=== PATIENT | female | born 1935 | race Two or more races ===

== ENCOUNTER 2017-08-08 20:05 | Inpatient (IN) | payer MEDICARE, BC ==
[~2017-08-08] VITALS: Ht 157.5 cm; Wt 66.2 kg
--- NOTE | 2017-08-08 20:05 | NUR ---
PT TO ER BB FROM HOME. PER EMS PT COMPLAINING OF PALPITATIONS INTERMITTENTLY WINCE 1500. UPON EMS ARRIVAL PT IN SVT. PT CONVERTED CUTTING TOOL SHARPENER WITH ADENOSINE 6MG IV. PT NOW IN NSR. PT DENIES ANY CHEST PAIN. PT CHANGED INTO GOWN AND CONNECTED TO MONITOR. NO DISTRESS NOTED. PT VITAL SIGNS WITHIN NORMAL LIMITS. DR MCHUGH AT BEDSIDE FOR EXAM. WILL CONT TO MONITOR PT.
[2017-08-08] MEDS ORDERED: ATOR40TA PO (20:42)
[2017-08-08] MEDS ORDERED: METO25TA6 PO (20:42)
[2017-08-08] MEDS ORDERED: PARO10TA3 PO (20:42)
[2017-08-08] MEDS ORDERED: TELM80TA2 PO (20:43)
[2017-08-08] MEDS ORDERED: TRIA1TAB3 PO (20:43)
[2017-08-08] MEDS ORDERED: PARO20TA6 PO (20:43)
[2017-08-08 21:00] LABS: BASOPHILS # (AUTO) 0.1 /CMM (0.0-0.2); BASOPHILS % (AUTO) 0.7 % (0.0-2.0); EOSINOPHILS % (AUTO) 0.5 % (0.0-6.0); HEMATOCRIT 36 % (33-45); HEMOGLOBIN 12.1 g/dL (11.5-14.8); LYMPHOCYTES # (AUTO) 1.9 /CMM (0.8-4.8); MEAN CORPUSCULAR HEMOGLOBIN 31 PG (26.0-33.0); MEAN CORPUSCULAR HGB CONC 34 g/dl (31.0-36.0); MEAN CORPUSCULAR VOLUME 91 fL (82-100); MONOCYTES # (AUTO) 0.6 /CMM (0.1-1.30); MONOCYTES % (AUTO) 5.9 % (2.0-12.0); NEUTROPHILS # (AUTO) 6.9 /CMM (1.8-8.9); NEUTROPHILS % (AUTO) 72.9 % (43.0-81.0); PLATELET COUNT (AUTO) 195 /CMM (150-450); RDW COEFFICIENT OF VARIATION 12.6 (11.5-15.0); WHITE BLOOD COUNT (AUTO) 9.5 K/uL (4.3-11.0)
[2017-08-08 21:11] LABS: CALCIUM, SERUM 8.7 mg/dL (8.5-10.1); CARBON DIOXIDE 27 mmol/L (21-32); CHLORIDE 102 mmol/L (98-107); CREATININE 1.2 mg/dL (0.6-1.3); GLUCOSE 144 mg/dL (74-106); POTASSIUM 4.3 mmol/L (3.5-5.1); SODIUM SERUM 134 mmol/L (136-145); UREA NITROGEN, BLOOD 37 mg/dL (7-18)
[2017-08-08 21:19] LABS: TROPONIN I 0.084 ng/mL (0.00-0.056)
[2017-08-08 21:26] LABS: B-TYPE NATRIURETIC PEPTIDE 388 PG/ML (0-125)
[2017-08-08] MEDS ORDERED: ENOXAPARIN SODIUM 60 MG/0.6 ML DISP.SYRIN SQ ONE (21:30)
[2017-08-08] MEDS ORDERED: ASPIRIN 325 MG TABLET PO ONE (21:30)
[2017-08-08] MEDS ORDERED: ENOXAPARIN SODIUM 80 MG/0.8 ML DISP.SYRIN SQ ONE (21:35)
[2017-08-08] MEDS ORDERED: ASPIRIN 325 MG TABLET ONE (21:35)
--- NOTE | 2017-08-08 22:02 | NUR ---
REPORT GIVEN TO DONNIE CROUCH FOR CONTINUATION OF CARE.
[2017-08-08 22:20] VITALS: BP 136/75
[2017-08-08] MEDS ORDERED: ONDANSETRON HCL/PF 4 MG/2 ML VIAL IVP PRN (22:30)
[2017-08-08] MEDS ORDERED: ACETAMINOPHEN 325 MG TABLET PO PRN (22:30)
[2017-08-08] MEDS ORDERED: MAG HYDROX/AL HYDROX/SIMETH 30 ML UDC PO PRN (22:30)
[2017-08-08] MEDS ORDERED: NITROGLYCERIN 0.4 MG/TAB BOTTLE SL PRN (22:30)
[2017-08-08] MEDS ORDERED: MAGNESIUM HYDROXIDE 30 ML UDC PO PRN (22:30)
--- NOTE | 2017-08-08 22:30 | NUR ---
RN ADMITTING NOTE; ADMITTED A 82 Y/O, F, ALERT, OX4. ABLE TO AMBULATE FROM RNEY TO BED W. STEADY GAIT. NO C/O PAIN OR DISCOMFORT. BREATHING EVENLY. NO SOB. NAD. PT WAS PLACED ON THE HEART MONITOR,. READING SR. VS OBTAINED , ALL STABLE. PT DENIED CHEST PAIN OR PALPITATIONS AT THIS TIME. MEDICAL HX WAS PROVIDED BY THE PT . AL NEEDS ATTENDED. BED LOW LOCKED. CALL LIGHT WITHIN REACH. WILL CONT TO MONITOR AND WILL F/U W/ MD'S ORDERS.
--- NOTE | 2017-08-08 23:57 | NUR ---
PLACED A CALL TO RADIOLOGY TO F/U W/ ECHO ORDER. PER MANAGER BRIDGE IF THE ORDER IS NOT STAT TH PROCEDURE WILL BE DONE IN AM. WILL ENDORSE TO AM SHIFT TO F/U. MICROSOFT SYSTEMS ENGINEER AT THE BED SIDE AT THIS TIME TO DRAW BLOOD FOR TROPONIN. PT REMAINED STABLE W/ NO C/O CP . ON ONGOING HEART MONITORING. READING SR ON TELE MONITOR,
--- NOTE | 2017-08-09 01:05 | NUR ---
RECEIVED TROP: 0.417 FROM LAB. VS: WNL BP: 128/77, HR:60, O2 SAT:94% ON RA. PT LAYING DOWN IN BED COMFORTABLY. W/ NO C/O PAIN OR DISCOMFORT. NO CP. ON ONGOING TELE MONITORING READING SR, SB. CHARLINE SHOE PARTS MOLDER. MADE AWARE OF THE TROP RESULT AND PT'S CONDITION W/ NNO. PT ALREADY ON ASA AND LOVENOX. DVT PUMP IN PLACE. PER SHOE PARTS MOLDER'S RECOMMENDATION TO KEEP PT ON O2 AT 2LPM VIA NC. CARRIED OUT. WILL CONT TO MONITOR,
[2017-08-09 04:00] VITALS: BP 122/63
[2017-08-09] MEDS: PANTOPRAZOLE 40 MG TABLET.DR PO SCH (07:30)
[2017-08-09 07:34] LABS: BASOPHILS % (AUTO) 0.5 % (0.0-2.0); EOSINOPHILS # (AUTO) 0.1 /CMM (0.0-0.7); EOSINOPHILS % (AUTO) 0.7 % (0.0-6.0); HEMATOCRIT 36 % (33-45); HEMOGLOBIN 12.1 g/dL (11.5-14.8); LYMPHOCYTES # (AUTO) 2.5 /CMM (0.8-4.8); LYMPHOCYTES % (AUTO) 31.6 % (20.0-44.0); MEAN CORPUSCULAR HEMOGLOBIN 31 PG (26.0-33.0); MEAN CORPUSCULAR HGB CONC 34 g/dl (31.0-36.0); MEAN CORPUSCULAR VOLUME 92 fL (82-100); MONOCYTES # (AUTO) 0.6 /CMM (0.1-1.30); MONOCYTES % (AUTO) 7.1 % (2.0-12.0); NEUTROPHILS # (AUTO) 4.7 /CMM (1.8-8.9); NEUTROPHILS % (AUTO) 60.1 % (43.0-81.0); PLATELET COUNT (AUTO) 206 /CMM (150-450); RDW COEFFICIENT OF VARIATION 13.5 (11.5-15.0); RED BLOOD CELL COUNT(AUTO) 3.93 MIL/uL (4.0-5.2); WHITE BLOOD COUNT (AUTO) 7.9 K/uL (4.3-11.0)
--- NOTE | 2017-08-09 07:47 | NUR ---
RN NOTE; PT IN BED AWAKE AND ALERT. SEEN AND EXAMINED BY DR. BA AT THE BED SIDE. NO C/O PAIN OR DISCOMFORT. DENIED CP. SR/SB ON TELE MONITOR. REPORT GIVEN TO CORA FOR ZEINAB.
--- NOTE | 2017-08-09 07:50 | NUR ---
DIRECTOR OF ASSESSMENT NOTE RECEIVED SBAR REPORT AT THE BEDSIDE. PATIENT IS A/O X3, AWAKE AND RESPONSIVE. DENIES PAIN/DISCOMFORT AT THIS TIME. PATIENT IS IN BED, BED IS LOCKED IN THE LOWEST POSITION, SIDE RAILS UP X2. CALL LIGHT WITHIN REACH. PATIENT EDUCATED TO USE THE CALL LIGHT TO CALL FOR ASSISTANCE. VERBALIZED UNDERSTANDING. WILL CONTINUE TO MONITOR/ REASSESS THROUGHOUT THE SHIFT.
--- NOTE | 2017-08-09 07:53 | NUR ---
TELETYPE INSTALLER NOTE DR BA AT THE BEDSIDE. PER SUGGESTION PATIENT TO STAY AT [facility] TODAY AND GO TO [facility] FOR CARDIAC ABLATION. PATIENT IS CALLING OWN PCP TO DISCUSS. WILL F/U WITH THE PATIENT.
[2017-08-09 07:54] LABS: CALCIUM, SERUM 9.2 mg/dL (8.5-10.1); CARBON DIOXIDE 26 mmol/L (21-32); CHLORIDE 102 mmol/L (98-107); GLUCOSE 108 mg/dL (74-106); POTASSIUM 4.3 mmol/L (3.5-5.1); SODIUM SERUM 138 mmol/L (136-145); UREA NITROGEN, BLOOD 27 mg/dL (7-18)
[2017-08-09 08:00] VITALS: BP 122/63
[2017-08-09 08:05] LABS: CHOLESTEROL 150 mg/dL (<200); HDL CHOLESTEROL 54 mg/dL (40-60); LDL 86 mg/dL (0-99); TRIGLYCERIDES 65 mg/dL (30-150)
[2017-08-09 08:50] LABS: THYROID STIMULATING HORMONE 7.976 uIU/mL (0.358-3.74)
[2017-08-09] MEDS: ENOXAPARIN SODIUM 60 MG/0.6 ML DISP.SYRIN SQ SCH ×2 (09:00→22:00)
[2017-08-09] MEDS: ASPIRIN 325 MG TABLET PO SCH (09:00)
[2017-08-09] MEDS ORDERED: ASPIRIN 81 MG TAB.CHEW PO SCH (09:00)
[2017-08-09] MEDS ORDERED: ASPIRIN 325 MG TABLET PO SCH (09:00)
[2017-08-09] MEDS: METOPROLOL TARTRATE 25 MG TABLET PO SCH ×2 (09:46→21:00)
--- NOTE | 2017-08-09 09:50 | NUR ---
CAGE TENDER NOTE Patient refused all medications due except for antihypertensive. Education provided.
[2017-08-09 12:00] VITALS: BP 105/59
--- NOTE | 2017-08-09 15:55 | NUR ---
Spoke with patient,she is alert and pleasant.Stated she lives alone in a [address] home, her grandson Alfredo [phone] stays with her half of the time. She is ambulatory and independent with adl's. No DME or homehealth reported. Her pcp is Dr.Angela Pulido at [facility]. Referred to [facility] [phone] for Higher level of care transfer Dx. NSTEMI, SVT, NEED Ablation and possible heart cath.Per Youth Manager - at [facility] [phone] is accepting. Faxed face sheet to [facility] transfer center as per request. Addendum: 08/09/17 at 1556 by CHANG LILLY RN Amended: Links added.
[2017-08-09 16:00] VITALS: BP 143/72
--- NOTE | 2017-08-09 19:04 | NUR ---
PRODUCT DEVELOPMENT ASSISTANT CLOSING NOTE PATIENT IS A/O X4, ASLEEP, EASILY AWAKEN, RESPONSIVE AND COOPERATIVE. DENIES PAIN/DISCOMFORT AT THIS TIME. PATIENT IS IN BED, BED IS LOCKED IN THE LOWEST POSITION, SIDE RAILS UP X2. CALL LIGHT WITHIN REACH. PATIENT EDUCATED TO USE THE CALL LIGHT TO CALL FOR ASSISTANCE. VERBALIZED UNDERSTANDING. DVT PUMPS ARE ON. ALL NEEDS ARE MET AT THIS TIME. WILL ENDORSE TO BUILDING MAINTENANCE REPAIRER FOR ZEINAB.
--- NOTE | 2017-08-09 19:30 | NUR ---
ASTRONAUT MISSION SPECIALIST OPENING NOTES RECEIVED PATIENT RESTING IN BED IN SEMI SANDERS POSITION, DENIED CHEST PAIN, NO SOB, NO ACUTE DISTRESS NOTED. ON TELE MONITORING WITH SINUS BRADYCARDIA 55. SMILING, TALKATIVE, RESP EVEN & NON LABORED. A & O X 3, CONTINENT OF B & BM, BRP. IV ACCESS TO LEFT WRIST, INTACT PATENT. ON O2 AT 2 LPM VIA NC. MIGHT BE DISCHARGED TO [facility] FOR CARDIAC ABLATION PER VALENCIA OLIVIER. BED IN LOW LOCKED POSITION. CALL LIGHT WITHIN REACH. WILL F/U WITH VALENCIA OLIVIER & PRINCIPAL SYSTEMS ARCHITECT ABOUT THE DISCHARGE. WILL CONTINUE TO MONITOR THE PT CLOSELY.
--- NOTE | 2017-08-09 19:55 | NUR ---
POSSIBLE DC TOMORROW GAGGERMAN CHARLINE PLACED ORDER TO DC PT [facility], SPOKE TO PREPARATORY TECHNICIAN JAVED & SHE INFORMED THAT PT IS NOT DISCHARGING TONIGHT TO [facility], NO BED AVAILABLE YET. JAVED WILL F/U IN AM ABOUT DISCHARGE OF PATIENT IN AM. NOTIFIED THE PATIENT WELL, SINCE PT WAS ALSO WILLING TO GO TOMORROW INSTEAD OF TODAY IF POSSIBLE. CM MADE CHARLINE AWARE WELL.
[2017-08-09 20:00] VITALS: BP_SYST 124; BP_SYST 145; BP_DIAS 65
--- NOTE | 2017-08-09 20:35 | NUR ---
faxed transfer summary to [facility] transfer ctr. Spoke with Deborah at [facility] patient placement [phone] opt#2, no bed available soham asif f/u in am. Ambulance ALS placed on will call TRIP# [id number] Addendum: 08/09/17 at 2034 by CHANG LILLY RN Amended: Links added.
--- NOTE | 2017-08-09 22:05 | NUR ---
LOPRESSOR HELD PATIENTS PULSE NOTED TO BE 55/MINUTE, ON TELE MONITORING, CHECKED MANUALLY WELL, STILL BETWEEN 55-58. HELD LOPRESSOR PER MD ORDER PARAMETERS. OBSERVING CLOSELY.
[2017-08-10 00:52] VITALS: BP 133/71
[2017-08-10 05:02] VITALS: BP 154/77
--- NOTE | 2017-08-10 06:35 | NUR ---
MISSING PERSONS INVESTIGATOR CLOSING NOTES PATIENT SLEPT WELL AT NIGHT. NO ACUTE DISTRESS/DISCOMFORT NOTED. USED THE RESTROOM 2-3 TIMES BY HERSELF. IV ACCESS TO LEFT WRIST, INTACT PATENT. ON TELE MONITORING WITH SR 61. POSSIBLE DC TO [facility] TODAY FOR CARDIAC ABLATION. CM TO F/U. SAFETY MEASURES IN PLACE. CALL LIGHT WITHIN REACH. BED IN LOW LOCKED POSITION. WILL ENDORSE TO AM RN FOR CONTINUITY OF CARE.
[2017-08-10 06:42] LABS: CARBON DIOXIDE 27 mmol/L (21-32); CHLORIDE 102 mmol/L (98-107); CREATININE 0.9 mg/dL (0.6-1.3); GLUCOSE 106 mg/dL (74-106); POTASSIUM 3.6 mmol/L (3.5-5.1); SODIUM SERUM 137 mmol/L (136-145); UREA NITROGEN, BLOOD 13 mg/dL (7-18)
--- NOTE | 2017-08-10 07:04 | NUR ---
OFFICER CAPTAIN OPENING NOTE RECEIVED SBAR REPORT ON THE PATIENT. PATIENT IS A/O X4, AWAKE, RESPONSIVE AND COOPERATIVE. DENIES PAIN/DISCOMFORT AT THIS TIME. PATIENT IS IN BED BED IS IN LOCKED POSITION, SIDE RAILS UP X2. CALL LIGHT WITHIN REACH. PATIENT WAS EDUCATED TO CALL FOR ASSISTANCE USING THE CALL LIGHT. PATIENT VERBALIZED UNDERSTANDING. WILL CONTINUE TO MONITOR THROUGHOUT THE SHIFT.
[2017-08-10 07:10] VITALS: BP 143/74
[2017-08-10 08:00] VITALS: BP 143/74
[2017-08-10] MEDS: PANTOPRAZOLE 40 MG TABLET.DR PO SCH (08:21)
[2017-08-10] MEDS: METOPROLOL TARTRATE 25 MG TABLET PO SCH ×2 (08:23→21:35)
[2017-08-10] MEDS: ENOXAPARIN SODIUM 60 MG/0.6 ML DISP.SYRIN SQ SCH ×2 (08:25→21:34)
--- NOTE | 2017-08-10 08:25 | NUR ---
MEMBER OF THE LEGISLATIVE COUNCIL NOTE PATIENT REFUSED LOVENOX. PATIENT STATED SHE DOES NOT WANT TO TAKE A BLOOD THINNER SHE MAY UNDERGO A SURGICAL PROCEDURE AT [facility] TODAY UPON HER TRANSFER/DISCHARGE.
--- NOTE | 2017-08-10 08:28 | NUR ---
ERP MANAGER NOTES PATIENT'S HOME MEDICATIONS GIVEN TO THE GRANDSON TRAVIS TO TAKE HOME WITH HIM. PATIENT/GRANDSON EDUCATED NOT TO KEEP ANY MEDICATIONS AT THE BEDSIDE, NOT TO SELF-ADMINISTER ANY PRESCRIBED OR OVER THE COUNTER MEDICATIONS WHILE HOSPITALIZED. PATIENT/GRANDSON VERBALIZED FULL UNDERSTANDING OF THE TEACHINGS. GRANDSON SIGNED THE PATIENT'S BELONGINGS FORM.
[2017-08-10] MEDS: ASPIRIN 325 MG TABLET PO SCH (09:00)
--- NOTE | 2017-08-10 10:14 | NUR ---
TOOL CRIB MANAGER NOTE ASPIRIN DOSE WAS FIXED BY THE PHARMACY. ATTEMPTED TO ADMINISTER THE ASPIRIN. PATIENT REFUSED AND STATED SHE TAKES ASPIRIN IN THE EVENING AND DOES NOT WANT TO TAKE IT NOW.
[2017-08-10 16:00] VITALS: BP_SYST 158; BP_SYST 169; BP_DIAS 66
--- NOTE | 2017-08-10 18:17 | NUR ---
TANK BUILDER HELPER NOTE PATIENT STATED SHE FEELS LIGHTHEADED. VS CHECKED FOLLOWS: BP 141/64 HR 63BPM. 2L O2 PER NC APPLIED. SPO2 99% ON 2L. HOB LOWERED. PATIENT STATES SHE FEELS SIGNIFICANTLY BETTER.
[2017-08-10] MEDS: IV NS 0.9% 1,000 ML IV PRN (18:23)
--- NOTE | 2017-08-10 19:47 | NUR ---
HEARING AND SPEECH ASSISTANT CLOSING NOTE GAVE SBAR REPORT ON THE PATIENT. PATIENT IS A/O X4, AWAKE, RESPONSIVE AND COOPERATIVE. DENIES PAIN/DISCOMFORT AT THIS TIME. PATIENT IS IN BED BED IS IN LOCKED POSITION, SIDE RAILS UP X2. CALL LIGHT WITHIN REACH. PATIENT WAS EDUCATED TO CALL FOR ASSISTANCE USING THE CALL LIGHT. PATIENT VERBALIZED UNDERSTANDING OF THE TEACHINGS. ENDORSED TO THE LAND USE PLANNER FOR ZEINAB.
[2017-08-10 20:00] VITALS: BP 152/65
--- NOTE | 2017-08-10 20:22 | NUR ---
TELE/RN RECEIVE PATIENT AWAKE, ALERT, ORIENTED, COMFORTABLE, NO C/O PAIN, NO DISTRESS NOTED, CALL LIGHT IN REACH. WILL MONITOR.
[2017-08-11] VITALS: BP 131/70
--- NOTE | 2017-08-11 01:58 | NUR ---
TELE/RN DAUGHTER IS AT BEDSIDE AT THIS TIME, PER PATIENT SHE TOOK HER OWN FLOUXETINE 10 MG THAT HER DAUGHTER BROUGHT.
[2017-08-11] MEDS: IV NS 0.9% 1,000 ML IV PRN (02:45)
[2017-08-11 04:00] VITALS: BP 128/51
--- NOTE | 2017-08-11 06:26 | NUR ---
TELE/RN STILL SLEEPING, AROUSABLE, APPEAR COMFORTABLE, NO DISTRESS NOTED, ALL NEEDS ATTENDED AT THIS TIME. WILL CONTINUE TO MONITOR.
--- NOTE | 2017-08-11 07:10 | NUR ---
RN NOTES PT IS IN BED, SITTING UP COMFORTABLY WITH DAUGHTER AT BEDSIDE. PT ON RA, RESPIRATIONS ARE EVEN AND UNLABORED. IV ON LFA INTACT AND PATENT, RUNNING NS @ 125ML/HR. SAFETY MEASURES ARE IN PLACE, CALL LIGHT IS IN REACH. WILL CONTINUE TO MONITOR.
[2017-08-11 07:17] LABS: BASOPHILS % (AUTO) 0.4 % (0.0-2.0); EOSINOPHILS # (AUTO) 0.1 /CMM (0.0-0.7); EOSINOPHILS % (AUTO) 1.7 % (0.0-6.0); HEMATOCRIT 33 % (33-45); HEMOGLOBIN 11.3 g/dL (11.5-14.8); LYMPHOCYTES # (AUTO) 1.9 /CMM (0.8-4.8); LYMPHOCYTES % (AUTO) 29.8 % (20.0-44.0); MEAN CORPUSCULAR HEMOGLOBIN 32 PG (26.0-33.0); MEAN CORPUSCULAR HGB CONC 35 g/dl (31.0-36.0); MEAN CORPUSCULAR VOLUME 92 fL (82-100); MONOCYTES # (AUTO) 0.5 /CMM (0.1-1.30); MONOCYTES % (AUTO) 8.2 % (2.0-12.0); NEUTROPHILS # (AUTO) 3.8 /CMM (1.8-8.9); NEUTROPHILS % (AUTO) 59.9 % (43.0-81.0); PLATELET COUNT (AUTO) 173 /CMM (150-450); RDW COEFFICIENT OF VARIATION 12.7 (11.5-15.0); RED BLOOD CELL COUNT(AUTO) 3.54 MIL/uL (4.0-5.2); WHITE BLOOD COUNT (AUTO) 6.4 K/uL (4.3-11.0)
[2017-08-11 07:32] LABS: CALCIUM, SERUM 8.3 mg/dL (8.5-10.1); CARBON DIOXIDE 28 mmol/L (21-32); CHLORIDE 102 mmol/L (98-107); CREATININE 0.9 mg/dL (0.6-1.3); GLUCOSE 106 mg/dL (74-106); MAGNESIUM 1.9 mg/dL (1.8-2.4); PHOSPHORUS 3.4 mg/dL (2.5-4.9); SODIUM SERUM 136 mmol/L (136-145); UREA NITROGEN, BLOOD 11 mg/dL (7-18)
[2017-08-11 08:00] VITALS: BP_SYST 102; BP_SYST 130; BP_DIAS 53; BP_DIAS 61
[2017-08-11 08:12] VITALS: BP 130/53
[2017-08-11] MEDS: METOPROLOL TARTRATE 25 MG TABLET PO SCH (08:12)
[2017-08-11] MEDS: PANTOPRAZOLE 40 MG TABLET.DR PO SCH (08:23)
[2017-08-11] MEDS: ASPIRIN 325 MG TABLET PO SCH (08:23)
[2017-08-11] MEDS: ENOXAPARIN SODIUM 60 MG/0.6 ML DISP.SYRIN SQ SCH (08:23)
[2017-08-11] MEDS ORDERED: Fluoxetine 10 mg capsule PO SCH (09:00)
--- NOTE | 2017-08-11 11:37 | NUR ---
RN NOTES PT LEFT AGAINST MEDICAL ADVICE IS STABLE CONDITION, ACCOMPANIED BY HER DAUGHTER. PT WAS UNABLE TO BE TRANSFERRED TO [facility] TO CONTINUE HER CARE, SO SHE STATED SHE WANTED TO LEAVE AMA TO GO THEIR ON HER OWN. IV AND ID BAND WERE REMOVED. AMA FORM AND BELONGINGS LIST WERE SIGNED.
[2017-08-11] MEDS ORDERED: ATORVASTATIN 10 MG TABLET PO SCH (22:00)
== END 2017-08-11 11:45 | disposition left against medical advice (07) | DRG 281 ==
LOC: ER 20:06 → TELE 21:47
PROVIDERS: ADMIT Nurse Practitioner Acute Care; ATTEND Nurse Practitioner Acute Care
DX: I21.4 Non-ST elevation (NSTEMI) myocardial infarction (principal); I47.1 Supraventricular tachycardia; E11.9 Type 2 diabetes mellitus without complications; I24.9 Acute ischemic heart disease, unspecified; Z79.899 Other long term (current) drug therapy; I10 Essential (primary) hypertension; Z79.82 Long term (current) use of aspirin; E03.9 Hypothyroidism, unspecified; F10.21 Alcohol dependence, in remission
CPT/HCPCS: 36415; 71010-TC; 80048-TC; 80061-TC; 82728-TC; 83540-TC; 83735-TC; 83880; 84100-TC; 84439-TC; 84443-TC; 84480; 84484-TC; 85025-TC; 87081-TC; 93307-TC; A4606; J1650; J7030; Z7610